=== PATIENT | male | born 1960 ===

== ENCOUNTER → 2020-02-15 | Emergency (ER) | payer SELFPAY ==
[~2020-02-15] MED LIST: IBUPROFEN 800 MG TAB ONE
[2020-02-15 12:38] VITALS: BP 169/109
--- NOTE | 2020-02-15 18:24 | XRay Report ---
CHEST 2 VIEWS INDICATION / CLINICAL INFORMATION: MAIN. Chest pain and bilateral shoulder pain for several days COMPARISON: None available. FINDINGS: SUPPORT DEVICES: None. HEART / MEDIASTINUM: No significant abnormality. LUNGS / PLEURA: No significant pulmonary or pleural abnormality. No pneumothorax. ADDITIONAL FINDINGS: No significant additional findings. IMPRESSION: No significant abnormality Signer Name: Gaetano Ybarra MD FACR Signed: 02/15/2020 6:20 PM Workstation Name: [id number]
[2020-02-15 18:32] LABS: Blood Urea Nitrogen 8 mg/dL (9-20); Calcium 9.1 mg/dL (8.4-10.2); Hemolysis Index 10
[2020-02-15 18:33] LABS: BUN/Creatinine Ratio 11
[2020-02-15 18:47] LABS: Basophils # (Auto) 0.1 K/mm3 (0.0-0.1); Eosinophils # (Auto) 0.2 K/mm3 (0.0-0.4); Eosinophils % (Auto) 3.4 % (0.0-4.3); Hematocrit 40.1 % (35.5-45.6); Hemoglobin 12.8 gm/dl (11.8-15.2); Lymphocytes # (Auto) 1.4 K/mm3 (1.2-5.4); Lymphocytes % (Auto) 28.8 % (13.4-35.0); Mean Corpuscular HGB Conc 32 % (32-34); Mean Corpuscular Volume 77 fl (84-94); Monocytes # (Auto) 0.5 K/mm3 (0.0-0.8); Monocytes % (Auto) 9.9 % (0.0-7.3); Platelet Count 112 K/mm3 (140-440); Red Blood Count 5.21 M/mm3 (3.65-5.03)
--- NOTE | 2020-02-16 00:16 | Emergency Department Report ---
HPI - General Chief Complaint: Shoulder Injury Time Seen by Provider: 02/15/20 23:46 ED Past Medical Hx - Past Medical History Previous Medical History?: No - Surgical History Past Surgical History?: Yes Additional Surgical History: right hand - Family History Family history: no significant - Social History Smoking Status: Former Smoker Substance Use Type: None (Denies illicit drug use), Alcohol (Occasional) - Medications Home Medications: Home Medications Medication Instructions Recorded Confirmed Last Taken Type Cyclobenzaprine [Flexeril] 10 mg PO TID PRN #10 tablet 02/16/20 Unknown Rx HYDROcodone/APAP 5-325 [Harris 1 - 2 each PO Q6HR PRN #10 tablet 02/16/20 Unknown Rx 5/325] Naproxen [Naprosyn] 500 mg PO BID #20 tablet 02/16/20 Unknown Rx ED Review of Systems ROS: Stated complaint: SHOULDER PAINS Other details as noted in HPI Constitutional: denies: fever Respiratory: no symptoms reported Endocrine: no symptoms reported Musculoskeletal: arthralgia Physical Exam - Physical Exam Vital Signs: Vital Signs 02/15/20 12:31 Temperature 97.8 F Pulse Rate 91 H Respiratory 18 Rate Blood Pressure 169/109 O2 Sat by Pulse 97 Oximetry ED Course Vital Signs 02/15/20 12:31 Temperature 97.8 F Pulse Rate 91 H Respiratory 18 Rate Blood Pressure 169/109 O2 Sat by Pulse 97 Oximetry ED Medical Decision Making - Lab Data Result diagrams: 02/15/20 17:53 02/15/20 17:53 - Radiology Data Radiology results: image reviewed (Chest x-ray, left shoulder x-ray) interpreted by me: Chest x-ray-no focal infiltrates, no pneumothorax. No foreign bodies Left shoulder x-ray-no acute fracture, no dislocation, no foreign body seen - Differential Diagnosis Bursitis, arthritis, anxiety, rotator cuff injury Critical care attestation.: If time is entered above; I have spent that time in minutes in the direct care of this critically ill patient, excluding procedure time. ED Disposition Clinical Impression: Bilateral shoulder pain Disposition: DC-01 TO HOME OR SELFCARE Is pt being admited?: No Does the pt Need Aspirin: No Condition: Stable Instructions: Osteoarthritis (ED), Shoulder Bursitis (ED), Rotator Cuff Injury (ED) Additional Instructions: Return to the emergency department should you develop worsening symptoms, inability to tolerate food or liquids, high fever or any other concerns Prescriptions: Cyclobenzaprine [Flexeril] 10 mg PO TID PRN #10 tablet PRN Reason: Muscle Spasm Naproxen [Naprosyn] 500 mg PO BID #20 tablet HYDROcodone/APAP 5-325 [Harris 5/325] 1 - 2 each PO Q6HR PRN #10 tablet PRN Reason: Pain Referrals: PHIL RODRIGUEZ MD [Staff Physician] - 3-5 Days (Dr. Rodriguez is an orthopedic surgeon. Please follow-up with him for further evaluation)
--- NOTE | 2020-02-16 00:20 | XRay Report ---
LEFT SHOULDER 3 VIEWS INDICATION / CLINICAL INFORMATION: Bilateral shoulder pain COMPARISON: None available. FINDINGS: BONES / JOINT(S): No acute fracture or subluxation. There is mild AC joint degenerative change. SOFT TISSUES: No significant abnormality. ADDITIONAL FINDINGS: None. Signer Name: Shady Martinez MD Signed: 02/16/2020 12:15 AM Workstation Name: [id number]
--- NOTE | 2020-02-16 00:39 | XRay Report ---
RIGHT SHOULDER 3 VIEWS INDICATION / CLINICAL INFORMATION: PAIN COMPARISON: None available. FINDINGS: BONES / JOINT(S): No acute fracture or subluxation. No significant arthritis. SOFT TISSUES: No significant abnormality. ADDITIONAL FINDINGS: None. Signer Name: Shady Martinez MD Signed: 02/16/2020 12:34 AM Workstation Name: [id number]
== END | disposition home or self-care (01) ==
LOC: ED 12:04
DX: M25.511 Pain in right shoulder (principal); M25.512 Pain in left shoulder
CPT/HCPCS: 36415; 71046; 80048; 84484; 85025; 93005